=== PATIENT | female | born 1970 | race Caucasian/White ===

== ENCOUNTER → 2018-11-28 | Outpatient (CLI) | payer MEDICAID | END | disposition home or self-care (01) | LOC: RAD 09:59 | DX: M25.511 Pain in right shoulder (principal) ==

== ENCOUNTER → 2018-12-01 | Outpatient (CLI) | payer MEDICAID | END | disposition home or self-care (01) | LOC: MAMMO 00:57 | DX: Z12.31 Encounter for screening mammogram for malignant neoplasm of breast (principal) ==

== ENCOUNTER 2019-02-15 19:05 | Emergency (ER) | payer OTHER ==
[~2019-02-15] VITALS: Ht 167.6 cm; Wt 1084.1 kg
[~2019-02-15 19:05] MED LIST: PREGABALIN150 MG PO
[2019-02-15 19:47] LABS: BASO % 0.3 % (0.0-1.0); EOS # 0.2 10*3/uL (0.0-0.4); EOS % 4.1 % (1.0-4.0); HEMATOCRIT 37.9 % (37.0-47.0); HEMOGLOBIN 12.9 g/dl (12.0-16.0); LYMPH # 1.5 10*3/uL (1.3-4.4); LYMPH % 25.1 % (27.0-41.0); MEAN CELL VOLUME 90.7 fl (81.0-99.0); MEAN CORPUSCULAR HGB 30.9 pg (27.0-31.0); MEAN PLATELET VOLUME 9.8 fl (9.6-12.3); MONO # 0.6 10*3/uL (0.1-1.0); MONO % 10.9 % (3.0-9.0); NEUT # 3.5 10*3/uL (2.3-7.9); NEUT % 59.4 % (47.0-73.0); PLATELET COUNT AUTOMATED 237 10*3/uL (130-400); RED BLOOD COUNT 4.18 10*6/uL (4.10-5.10); RED CELL DISTRI WIDTH 13.4 % (0-14.5); WHITE BLOOD COUNT 5.9 10*3/uL (4.8-10.8)
[2019-02-15 20:01] LABS: ALBUMIN 3.2 gm/dl (3.1-4.5); ALKALINE PHOSPHATASE 79 U/L (45-117); BUN 14 mg/dl (7-24); CHLORIDE 107 mmol/L (98-107); CREATININE 1.02 mg/dL (0.55-1.02); LIPASE 222 U/L (73-393); POTASSIUM 3.7 mmol/L (3.5-5.1); SGOT/AST 22 IU/L (3-35); SGPT/ALT 33 U/L (12-78); SODIUM 139 mmol/L (136-145); TOTAL PROTEIN 6.5 gm/dL (6.4-8.2)
[2019-02-15 20:10] LABS: BILIRUBIN NEGATIVE (NEGATIVE); BLOOD NEGATIVE (NEGATIVE); CLARITY CLEAR (CLEAR); COLOR YELLOW (YELLOW); GLUCOSE NEGATIVE (NEGATIVE); KETONE NEGATIVE (NEGATIVE); LEUKO ESTERASE NEGATIVE (NEGATIVE); NITRITE NEGATIVE (NEGATIVE); SPECIFIC GRAVITY <= 1.005 (1.005-1.030); UROBILINOGEN 0.2 E.U./dl (0.2-1.0)
[2019-02-15 20:31] LABS: EPITHELIAL CELLS 0-2
== END 2019-02-15 21:05 | disposition home or self-care (01) ==
LOC: ED 19:05
PROVIDERS: Emergency Medicine
DX: R10.31 Right lower quadrant pain (principal); R11.0 Nausea; R51 Headache; M79.7 Fibromyalgia; G89.29 Other chronic pain; E03.9 Hypothyroidism, unspecified; Z88.0 Allergy status to penicillin; Z88.2 Allergy status to sulfonamides; Z79.899 Other long term (current) drug therapy

== ENCOUNTER 2019-06-11 22:49 | Inpatient (IN) | payer OTHER ==
[~2019-06-11] VITALS: Ht 167.6 cm; Wt 108.7 kg
[2019-06-11 23:01] VITALS: BP 114/102
[2019-06-11 23:54] LABS: BASO % 0.7 % (0.0-1.0); EOS # 0.1 10*3/uL (0.0-0.4); EOS % 1.7 % (1.0-4.0); HEMATOCRIT 38.6 % (37.0-47.0); HEMOGLOBIN 12.8 g/dl (12.0-16.0); LYMPH % 17.1 % (27.0-41.0); MEAN CELL VOLUME 88.1 fl (81.0-99.0); MEAN CORPUSCULAR HGB 29.2 pg (27.0-31.0); MEAN CORPUSCULAR HGB CONC 33.2 g/dl (33.0-37.0); MONO # 0.8 10*3/uL (0.1-1.0); MONO % 13.3 % (3.0-9.0); PLATELET COUNT AUTOMATED 233 10*3/uL (130-400); RED BLOOD COUNT 4.38 10*6/uL (4.10-5.10); RED CELL DISTRI WIDTH 13.1 % (0-14.5)
[2019-06-12 00:13] LABS: ALBUMIN 3.2 gm/dl (3.1-4.5); ALKALINE PHOSPHATASE 160 U/L (45-117); BUN 14 mg/dl (7-24); CHLORIDE 105 mmol/L (98-107); CREATININE 1.22 mg/dL (0.55-1.02); POTASSIUM 4.2 mmol/L (3.5-5.1); SGOT/AST 286 IU/L (3-35); SGPT/ALT 179 U/L (12-78); SODIUM 137 mmol/L (136-145); TOTAL PROTEIN 6.9 gm/dL (6.4-8.2)
[2019-06-12 00:14] LABS: ACT PARTIAL THROMBO TIME 25.1 SECONDS (20.0-32.1); INTERNATIONAL NORM RATIO 0.9 (2.0-3.5)
[2019-06-12 00:24] LABS: TROPONIN I < 0.015 ng/ml (<0.045)
[2019-06-12] MEDS ORDERED: CIPRO500 MG PO (00:56)
[2019-06-12] MEDS ORDERED: Synthroid,Levo25 MCG PO (02:05)
[2019-06-12] MEDS ORDERED: TRAZODONE150 MG PO (02:06)
[2019-06-12] MEDS ORDERED: DULOXETINE HCL60 MG PO (02:07)
[2019-06-12] MEDS ORDERED: MELOXICAM7.5 MG PO (02:07)
[2019-06-12 02:30] VITALS: BP 118/72
--- NOTE | 2019-06-12 02:30 | NUR ---
A 49, admitted to , under the services of PRUDENCIO Mendoza DO with a diagnosis of TRANSAMINITIS, ELEVATED D-DIMER, CHEST PAIN. Chief complaint is CHEST PAIN. Patient arrived via bed from ER. Monitor applied. Initial assessment completed. Vital signs taken and recorded. PRUDENCIO MENDOZA DO notified of admission to the unit. Orders received. See assessment for past medical history, medications and allergies. Patient and/or family oriented to unit. [facility] visitation policy reviewed. Clothing/patient valuable form completed. SON RICHARDSON
[2019-06-12 02:53] VITALS: BP 122/94
[2019-06-12] MEDS ORDERED: NATURE'S BLEND F1 MG PO (03:01)
[2019-06-12] MEDS ORDERED: VITAMIN B-125000 MC2 PO (03:01)
[2019-06-12] MEDS ORDERED: VITAMIN C500 M4 PO (03:02)
[2019-06-12] MEDS ORDERED: WOMEN'S 50 PLU1 EACH PO (03:02)
[2019-06-12 05:41] LABS: ALKALINE PHOSPHATASE 167 U/L (45-117); BUN 13 mg/dl (7-24); CHLORIDE 107 mmol/L (98-107); CREATININE 1.08 mg/dL (0.55-1.02); PHOSPHOROUS 3.8 mg/dL (2.5-4.9); POTASSIUM 4.1 mmol/L (3.5-5.1); SGOT/AST 426 IU/L (3-35); SGPT/ALT 300 U/L (12-78); SODIUM 139 mmol/L (136-145); TOTAL PROTEIN 6.7 gm/dL (6.4-8.2)
--- NOTE | 2019-06-12 05:45 | NUR ---
PATIENT STATES THAT HER PAIN IS "OUT OF CONTROL". OFFERED NORCO, PATIENT STATES THAT SHE IS ALLERGIC TO VICODIN AND IS UNABLE TO TAKE THAT SO SHE WILL WAIT UNTIL 0730 WHEN SHE IS ABLE TO GET PRN MORPHINE AGAIN.
[2019-06-12 06:13] LABS: BASO # 0.1 10*3/uL (0.0-0.1); BASO % 0.9 % (0.0-1.0); EOS # 0.2 10*3/uL (0.0-0.4); EOS % 2.6 % (1.0-4.0); HEMATOCRIT 38.5 % (37.0-47.0); HEMOGLOBIN 12.6 g/dl (12.0-16.0); LYMPH # 1.7 10*3/uL (1.3-4.4); LYMPH % 29.5 % (27.0-41.0); MEAN CELL VOLUME 90.8 fl (81.0-99.0); MEAN CORPUSCULAR HGB 29.7 pg (27.0-31.0); MEAN CORPUSCULAR HGB CONC 32.7 g/dl (33.0-37.0); MEAN PLATELET VOLUME 10.7 fl (9.6-12.3); MONO # 0.7 10*3/uL (0.1-1.0); MONO % 12.2 % (3.0-9.0); NEUT # 3.1 10*3/uL (2.3-7.9); NEUT % 54.5 % (47.0-73.0); PLATELET COUNT AUTOMATED 210 10*3/uL (130-400); RED BLOOD COUNT 4.24 10*6/uL (4.10-5.10); RED CELL DISTRI WIDTH 13.2 % (0-14.5); WHITE BLOOD COUNT 5.7 10*3/uL (4.8-10.8)
--- NOTE | 2019-06-12 07:53 | NUR ---
PRN IV MORPHINE GIVEN PER PT REQUEST FOR 9/10 PAIN TO MIDSTERNAL CHEST.
--- NOTE | 2019-06-12 08:00 | NUR ---
PT RESTING IN BED. STATING SHE STILL HAS CENTER CHEST PAIN 5/10 THAT RADIATES "EVERYWHERE". RESPS EASY AND NON LABORED. VSS. WHITE BOARD UPDATED. CALL LIGHT WITHIN REACH.
[2019-06-12 08:15] VITALS: BP 122/78
--- NOTE | 2019-06-12 09:00 | NUR ---
Student Teaching Coordinator in to talk to patient. Patient states lives at home with friend. There are no steps in the home. Physician: jair chiang [facility]acy: [facility] Home health services: none Patient's level of ADLs: MINIMAL ASSIST Patient has working utilities: all working DME: walker,cane, cpap Follow-up physician's appointment after d/c: will be made by hospitalist nurse director upon discharge Does patient want to access PORTAL?: no Discharge plan discussed with patient, she states she lives at home with friend, she uses a cane or walker for ambulation due to fibromyalgia and is independent in adls, she also has a cpap, discussed with her a discharge plan including VNA and educated her on the services they offer, patient stated she currently has home physical therapy but does not remember the name of the company, she states she will have her friend bring in the card with the company name on it, she does not feel at this time that she needs any visiting nurses, case management will follow. CY DOMINGO
--- NOTE | 2019-06-12 09:50 | NUR ---
DR ERICKSON NOTIFIED OF CRITICAL APPT: NO CLOT DETECTED. WILL INITIATE HEPARIN PROTOCOL AT THIS TIME.
--- NOTE | 2019-06-12 10:16 | NUR ---
DR BAILEY NOTIFIFED OF NEW CONSULT. NO NEW ORDERS AT THIS TIME
--- NOTE | 2019-06-12 10:27 | NUR ---
SPOKE WITH RADIOLOGY CONCERNING ULTRASOUND. PT ATE BREAKFAST THIS MORNING AND WANTS TO DO ULTRASOUND IN THE AM. INFORMED PT THAT SHE WILL BE NPO AFTER MIDNIGHT
--- NOTE | 2019-06-12 10:55 | NUR ---
DR NAVARRO IN TO SEE PT.STATES PT IS TO HAVE US OF GALLBLADDER TODAY AND THAT IS SHE IS NPO FOR 4 HOURS PRIOR THAT IS FINE. ALSO TO CHANGE MORPHINE TO 4MG Q4H IV AND TO MAKE PT CLEAR LIQUID DIET AFTER US.
--- NOTE | 2019-06-12 11:14 | NUR ---
PT C/O 01/12 RADIATING CHEST/ABD PAIN. MEDICATED PER ORDER. WILL MONITOR FOR RELIEF. VOICES NO OTHER CONCERNS AT THIS TIME. RESPS EASY AND NON LABORED. NO S/S OF DISTRESS NOTED. VSS. CALL LIGHT WITHIN REACH
--- NOTE | 2019-06-12 11:23 | NUR ---
HEPARIN RESTARTED PER PROTOCOL. INFUSING AT 15U/KG/HR-16.4ML/H WITHOUT ISSUE.
--- NOTE | 2019-06-12 11:55 | NUR ---
MORPHINE EFFECTIVE PER PT
[2019-06-12 12:00] VITALS: BP 119/76
--- NOTE | 2019-06-12 12:37 | NUR ---
HEPARIN ON HOLD FOR ONE HOUR D/T PTT. WILL FOLLOW HEPARIN PROTOCOL.
--- NOTE | 2019-06-12 15:02 | NUR ---
PT TAKEN OFF FLOOR FOR V/Q SCAN AND ULTRASOUND
--- NOTE | 2019-06-12 15:02 | NUR ---
Shift chart check completed.
[2019-06-12 16:00] VITALS: BP 131/83
--- NOTE | 2019-06-12 16:16 | NUR ---
PT C/O 12/13 ACHING/STABBING CHEST/ABD PAIN. MEDICATED PER ORDER. WILL MONITOR FOR RELIEF. RESPS EASY AND NON LABORED. NO S/S OF DISTRESS NOTED. VSS. CALL LIGHT WITHIN REACH.
--- NOTE | 2019-06-12 18:12 | NUR ---
MORPHINE EFFECTIVE PER PT
--- NOTE | 2019-06-12 18:21 | NUR ---
PT C/O 07/13 CENTER CHEST/ABD PAIN. MEDICATED PER ORDER. WILL MONITOR FOR RELIEF. RESPS EASY AND NON LABORED. VSS. CALL LIGHT WITHIN REACH
[2019-06-12 20:00] VITALS: BP 112/51
--- NOTE | 2019-06-12 20:01 | NUR ---
CALLED DR YOUNG AND NOTIFIED HIM OF PATIENT WANTING HER TRAZADONE AND HE IS GOING TO LOOK AT HER MEDS.
--- NOTE | 2019-06-12 20:22 | NUR ---
2021 MORPHINE GIVEN PER ORDER FOR PAIN MID STERNAL TO BACK PER PT. RATED "8"
--- NOTE | 2019-06-12 21:22 | NUR ---
PER PT. MORPHINE EFFECTIVE FOR PAIN. SEE MAR.
--- NOTE | 2019-06-12 23:54 | NUR ---
24 HR chart check completed.
[2019-06-13] VITALS (7 sets, daily range): BP systolic 88–106; BP diastolic 42–70
--- NOTE | 2019-06-13 05:08 | NUR ---
MORPHINE GIVEN PER ORDER FOR MID STERNAL CHEST PAIN RATED"7-8" SEE MAR.
--- NOTE | 2019-06-13 06:08 | NUR ---
PER PT. MORPHINE EFFECTIVE AT MAKING PAIN MANAGABLE.
[2019-06-13 06:37] LABS: BASO # 0.1 10*3/uL (0.0-0.1); BASO % 1.1 % (0.0-1.0); EOS # 0.3 10*3/uL (0.0-0.4); EOS % 5.9 % (1.0-4.0); HEMATOCRIT 36.4 % (37.0-47.0); HEMOGLOBIN 11.8 g/dl (12.0-16.0); LYMPH # 1.3 10*3/uL (1.3-4.4); LYMPH % 28.9 % (27.0-41.0); MEAN CELL VOLUME 92.9 fl (81.0-99.0); MEAN CORPUSCULAR HGB 30.1 pg (27.0-31.0); MEAN CORPUSCULAR HGB CONC 32.4 g/dl (33.0-37.0); MEAN PLATELET VOLUME 10.5 fl (9.6-12.3); MONO # 0.7 10*3/uL (0.1-1.0); NEUT # 2.1 10*3/uL (2.3-7.9); NEUT % 48.6 % (47.0-73.0); PLATELET COUNT AUTOMATED 187 10*3/uL (130-400); RED BLOOD COUNT 3.92 10*6/uL (4.10-5.10); RED CELL DISTRI WIDTH 13.5 % (0-14.5); WHITE BLOOD COUNT 4.4 10*3/uL (4.8-10.8)
[2019-06-13 07:07] LABS: ALBUMIN 2.9 gm/dl (3.1-4.5); BUN 8 mg/dl (7-24); CHLORIDE 106 mmol/L (98-107); POTASSIUM 3.8 mmol/L (3.5-5.1); SODIUM 139 mmol/L (136-145)
[2019-06-13 07:12] LABS: ALKALINE PHOSPHATASE 204 U/L (45-117); CREATININE 1.13 mg/dL (0.55-1.02); SGOT/AST 266 IU/L (3-35); SGPT/ALT 366 U/L (12-78); TOTAL PROTEIN 6.4 gm/dL (6.4-8.2)
--- NOTE | 2019-06-13 09:00 | NUR ---
case management visits with patient, she states she will return home when medically stable and denies any home needs, case management will follow
--- NOTE | 2019-06-13 09:13 | NUR ---
MORPHINE GIVEN FOR C/O CHEST PAIN, RATES 6/10 ON PAIN SCALE. WILL MONITOR.
--- NOTE | 2019-06-13 10:15 | NUR ---
MORPHINE EFFECTIVE PER PT.
--- NOTE | 2019-06-13 12:14 | NUR ---
DR. AGUILAR NOTIFIED OF CONSULT.
--- NOTE | 2019-06-13 15:36 | NUR ---
NORCO GIVEN FOR C/O CHEST APIN. RATES 5/10 ON PAIN SCALE. WILL MONITOR.
--- NOTE | 2019-06-13 16:40 | NUR ---
LILIAN EFFECTIVE PER PT.
--- NOTE | 2019-06-13 18:04 | NUR ---
MORPHINE GIVEN FOR C/O CHEST PAIN, RATES 8/10 ON PAIN SCALE. WILL MONITOR.
--- NOTE | 2019-06-13 19:56 | NUR ---
NORCO GIVEN PER ORDER FOR MID STERNAL TO BACK PAIN RATED "6-7" SEE MAR. IV SITE IN RIGHT ANTECUBITAL INFILTRATED. FLUIDS STOPPED AND HEPLOCK REMOVED. STERILE BAND AID APPLIED. IV started left forearm with #22 angiocath after 1ST attempts. The IV site was prepped with Chloraprep. Heparin lock attached. IV solution 0.9NS infusing at 100 cc/hr. Sterile dressing applied. Patient tolerated precedure well. Procedure performed according to [facility] policy & procedure. POLO MEEKS
--- NOTE | 2019-06-13 20:59 | NUR ---
NORCO EFFECTIVE FOR MID STERNAL CHEST PAIN PER PT. "IT HELPS MAKE THE PAIN TOLERABLE".
--- NOTE | 2019-06-13 23:54 | NUR ---
PT. DENIES NEED FOR PAIN MEDICATION AT THIS TIME.
[2019-06-14] VITALS (10 sets, daily range): BP systolic 94–133; BP diastolic 54–83
--- NOTE | 2019-06-14 00:55 | NUR ---
SLEEPING. NOT AWAKEND. NO ACUTE DISTRESS.
--- NOTE | 2019-06-14 01:08 | NUR ---
24 HR chart check completed.
--- NOTE | 2019-06-14 03:39 | NUR ---
PATIENT AWAKE AND UP TO BATHROOM FEELING NAUSEATED. SKIN NOTED TO BE SLIGHT JAUNDICE. SCLERA STILL WHITE. ZOFRAN TO BE GIVEN.
--- NOTE | 2019-06-14 03:51 | NUR ---
MORPHINE GIVEN PER ORDER FOR PAIN RATED "10" MID STERNAL/EPIGASTRIC COMES AND GOES.
--- NOTE | 2019-06-14 04:50 | NUR ---
ZOFRAN EFFECTIVE FOR NAUSEA. MORPHINE EFFECTIVE FOR MIDSTERNAL/EPIGASTRIC PAIN PER PT. PAIN IS ABOUT 2-3.
[2019-06-14 06:21] LABS: BASO # 0.1 10*3/uL (0.0-0.1); BASO % 1.4 % (0.0-1.0); EOS # 0.3 10*3/uL (0.0-0.4); EOS % 7.7 % (1.0-4.0); HEMATOCRIT 35.7 % (37.0-47.0); HEMOGLOBIN 11.7 g/dl (12.0-16.0); LYMPH # 1.4 10*3/uL (1.3-4.4); LYMPH % 37.4 % (27.0-41.0); MEAN CELL VOLUME 92.2 fl (81.0-99.0); MEAN CORPUSCULAR HGB 30.2 pg (27.0-31.0); MEAN CORPUSCULAR HGB CONC 32.8 g/dl (33.0-37.0); MEAN PLATELET VOLUME 10.7 fl (9.6-12.3); MONO # 0.4 10*3/uL (0.1-1.0); MONO % 12.1 % (3.0-9.0); NEUT # 1.5 10*3/uL (2.3-7.9); NEUT % 41.1 % (47.0-73.0); PLATELET COUNT AUTOMATED 198 10*3/uL (130-400); RED BLOOD COUNT 3.87 10*6/uL (4.10-5.10); RED CELL DISTRI WIDTH 13.7 % (0-14.5); WHITE BLOOD COUNT 3.6 10*3/uL (4.8-10.8)
[2019-06-14 06:34] LABS: BUN 7 mg/dl (7-24); CHLORIDE 111 mmol/L (98-107); CREATININE 0.99 mg/dL (0.55-1.02); POTASSIUM 3.7 mmol/L (3.5-5.1); SGOT/AST 137 IU/L (3-35); SGPT/ALT 288 U/L (12-78); SODIUM 142 mmol/L (136-145)
[2019-06-14 06:36] LABS: ALKALINE PHOSPHATASE 176 U/L (45-117); TOTAL PROTEIN 6.3 gm/dL (6.4-8.2)
--- NOTE | 2019-06-14 09:00 | NUR ---
case management visits with patient, she was ambulating in room per self, she states she will return home when medically stable and denies any home needs
--- NOTE | 2019-06-14 13:23 | NUR ---
PT OFF FLOOR TO SURGERY FOR ERCP.
--- NOTE | 2019-06-14 19:25 | NUR ---
PATIENT BACK FROM SURGERY AT THIS TIME. DISORIENTED AND C/O PAIN, PER SURGERY THEY STATE THAT PATIENT HAD PAIN MEDICATION PRIOR TO LEAVING THEIR DEPARTMENT
--- NOTE | 2019-06-14 19:30 | NUR ---
CALLED ANGEL (PATIENTS SISTER) AND ANA (PATIENTS FRIEND) PER REQUEST TO LET THEM KNOW THAT SHE IS BACK FROM SURGERY.
--- NOTE | 2019-06-14 19:58 | NUR ---
PATIENT PROVIDED WITH ICE CHIPS PER REQUEST, PATIENT STILL GROGGY FROM ANESTHISIA. BUT ABLE TO VERBALIZE WELL. RN WILL MONITOR
--- NOTE | 2019-06-14 20:11 | NUR ---
PATIENT MEDICATED WITH MORPHINE PER DRS ORDERS. PATIENT CRYING AND YELLING OUT "IM IN PAIN" PATIENT DISORIENTED, FORGOT THIS RN NAME ALTHOUGH I WAS JUST IN PATIENTS ROOM. FAMILY IS IN AT THE BEDSIDE VISITING WITH PATIENT.
--- NOTE | 2019-06-14 21:51 | NUR ---
NORCO GIVEN FOR CONTINUED PAIN. CONTINUES TO SCREAM OUT
--- NOTE | 2019-06-14 23:02 | NUR ---
PATIENT AGAIN MEDICATED WITH MORPHINE, PATIENT YELLING OUT AND SCREAMING LOUDLY. RN WILL MONITOR
[2019-06-15] VITALS: BP 128/79
--- NOTE | 2019-06-15 | NUR ---
PATIENT WAS YELLING AND SCREAM ABOUT PAIN. SINCE LAST MORPHINE ADMINISTRATION PATIENT HAS DECREASED THE SCREAM OUT.
--- NOTE | 2019-06-15 01:02 | NUR ---
PATIENT HAVING OFF AND ON ABD INCISION PAIN AND NAUSEA. ZOFRAN GIVEN FOR NAUSEA AND TYLENOL GIVEN FOR ABD INCISION GAS PAIN TOO SOON FOR ANYOTHER PAIN MEDICATION.
--- NOTE | 2019-06-15 01:34 | NUR ---
NORCO GIVEN PER ORDER FOR ABD INCISION/GAS PAIN RATED "8" IN INTENSITY. TEACHING PATIENT TO DO DEEP BREATHING RELAXATION TECHNIQUE. PT. DID GET UP TO BEDSIDE COMMODE AND VOIDED 600CC JEB URINE.
--- NOTE | 2019-06-15 02:30 | NUR ---
NORCO AND TYLENOL SEEM EFFECTIVE PATIENT SLEEPING.
--- NOTE | 2019-06-15 03:15 | NUR ---
PT AWAKEND AND C/O UPPER ABD INCISION PAIN RATED "8-9" THAT COMES AND GOES. MORPHINE GIVEN PER ORDER FOR PAIN. DEEP BREATHING ENCOURAGED. ICE CHIPS GIVEN AND ENCOURAGED PATIENT TO GET UP AND MOVE.
--- NOTE | 2019-06-15 03:53 | NUR ---
24 HR chart check completed.
--- NOTE | 2019-06-15 04:15 | NUR ---
PT. AWAKEND WHEN CHECKING ON HER. WHIMPERING WITH ABD GAS/INCISIONAL PAIN THAT COMES AND GOES. SAYS THE MORPHINE HELP IT TO BE TOLERABLE. BREATHING BEING DONE TO HELP WITH PAIN.
--- NOTE | 2019-06-15 05:29 | NUR ---
NAYELYCO GIVEN PER ORDER FOR ABD INCISION/GAS PAIN RATED "6-7" PAIN COMES AND GOES. SEE MAR.
--- NOTE | 2019-06-15 06:25 | NUR ---
LILIAN HELPING TAKE THE EDGE OFF BUT STILL IN PAIN PER PT.
[2019-06-15 06:35] LABS: HEMATOCRIT 34.9 % (37.0-47.0); HEMOGLOBIN 11.4 g/dl (12.0-16.0); MEAN CELL VOLUME 91.4 fl (81.0-99.0); MEAN CORPUSCULAR HGB 29.8 pg (27.0-31.0); MEAN CORPUSCULAR HGB CONC 32.7 g/dl (33.0-37.0); MEAN PLATELET VOLUME 10.7 fl (9.6-12.3); PLATELET COUNT AUTOMATED 227 10*3/uL (130-400); RED BLOOD COUNT 3.82 10*6/uL (4.10-5.10); RED CELL DISTRI WIDTH 13.4 % (0-14.5); WHITE BLOOD COUNT 11.2 10*3/uL (4.8-10.8)
[2019-06-15 06:53] LABS: ALBUMIN 2.9 gm/dl (3.1-4.5); ALKALINE PHOSPHATASE 166 U/L (45-117); BUN 8 mg/dl (7-24); CHLORIDE 107 mmol/L (98-107); CREATININE 1.15 mg/dL (0.55-1.02); POTASSIUM 3.9 mmol/L (3.5-5.1); SGOT/AST 90 IU/L (3-35); SGPT/ALT 213 U/L (12-78); SODIUM 138 mmol/L (136-145); TOTAL PROTEIN 6.3 gm/dL (6.4-8.2)
[2019-06-15 07:11] LABS: PLATELET SUFFICIENCY NORMAL (NORMAL); TOTAL CELLS COUNTED 100 #CELLS
--- NOTE | 2019-06-15 07:13 | NUR ---
MORPHINE GIVEN PER ORDER FOR ABD INCISION COMES AND GOES RATED "7-8". SEE MAR.
--- NOTE | 2019-06-15 07:14 | NUR ---
DR. BAILEY IN AND EXAMINED PATIENT AND SPOKE WITH HER. ORDERS RECEIVED.
--- NOTE | 2019-06-15 07:58 | NUR ---
PT DIET CHANGED TO FULL LIQUID DIET PER ORDERS GIVEN BY DR BAILEY. WILL MONITOR HOW PT TOLERATES THIS DIET.
--- NOTE | 2019-06-15 09:00 | NUR ---
case management visits with patient, she states she will return home when medically stable and denies any home needs, case management will follow
--- NOTE | 2019-06-15 09:25 | NUR ---
PT C/O NAUSEA/STOMACH PAIN. ZOFRAN GIVEN AT THIS TIME. IV FLUIDS CONTINUE TO RUN. IV SITE IS PATENT. DRESSING C/D/I. RESPIRATIONS EASY AND UNLABORED ON NC. CALL LIGHT IN REACH.
--- NOTE | 2019-06-15 10:25 | NUR ---
ZOFRAN EFFECTIVE PER PT.
--- NOTE | 2019-06-15 11:47 | NUR ---
PT GIVEN DILAUDID 0.5 MG VIA IV FOR C/O ABDOMINAL PAIN. WILL MONITOR FOR EFFECTIVENESS.
[2019-06-15 12:00] VITALS: BP 102/58
--- NOTE | 2019-06-15 12:37 | NUR ---
PT STATES THAT DILAUDID IS EFFECTIVE.
--- NOTE | 2019-06-15 13:00 | NUR ---
PT UP WALKING T/O HALLS AT THIS TIME WITH .
[2019-06-15 16:00] VITALS: BP 112/64
--- NOTE | 2019-06-15 19:15 | NUR ---
REPORT OBTAINED FROM PRIOR NURSE. PATIENT IS RESTIN IN BED QUIETLY AT THIS TIEM, VOICED NO COMPLAINTS. BED IS LOCKED IN LOWEST POSITION. CALL LIGHT WITHIN REACH
[2019-06-15 20:00] VITALS: BP 112/64
--- NOTE | 2019-06-15 20:36 | NUR ---
PATIENT MEDICATED WITH ZOFRAN AND DILAUDID FOR COMPLAINT FOR NAUSEA AND 7/10 PAIN. WILL CONITNUE TO MONITOR
--- NOTE | 2019-06-15 21:36 | NUR ---
ZOFRAN AND DILAUDID EFFECTIVE
[2019-06-16] VITALS: BP 115/65
--- NOTE | 2019-06-16 01:03 | NUR ---
PATIENT MEDICATED WITH DILAUDID FOR 8/10 PAIN. WILL MONITOR
--- NOTE | 2019-06-16 02:03 | NUR ---
DILAUDID APPEARS EFFECTIVE. PATIENT RESTING QUIETLY IN BED. EYES CLOSED. NO DISTRESS NOTED. CALL LIGHT WITHIN REACH
--- NOTE | 2019-06-16 06:19 | NUR ---
PATIENT MEDICATED WITH DILAUDID FOR C/O 9/10 ABD PAIN. WILL MONITOR
[2019-06-16 08:00] VITALS: BP 100/50
--- NOTE | 2019-06-16 08:30 | NUR ---
PT COMPLAINS OF PAIN AT THIS TIME. REQUESTS DILAUDID.
--- NOTE | 2019-06-16 09:30 | NUR ---
PT MEDICATED FOR PAIN AT THIS TIME. PRN DILAUDID ADMINISTERED. WILL MONITOR FOR EFFECTIVENESS. PT ENCOURAGED TO GET UP AND WALK. PT SITTING ON SIDE OF BED AFTER A SHORT WALK. PT STATES SHE IS NAUSEOUS. BREAKFAST BROUGHT IN AT THIS TIME. PT EATING. BED IN LOWEST LOCKED POSITION AND CALL LIGHT WITHIN REACH.
[2019-06-16 09:46] LABS: BASO % 0.4 % (0.0-1.0); EOS # 0.1 10*3/uL (0.0-0.4); EOS % 0.6 % (1.0-4.0); HEMATOCRIT 32.1 % (37.0-47.0); HEMOGLOBIN 10.4 g/dl (12.0-16.0); LYMPH # 1.6 10*3/uL (1.3-4.4); LYMPH % 15.6 % (27.0-41.0); MEAN CELL VOLUME 91.7 fl (81.0-99.0); MEAN CORPUSCULAR HGB 29.7 pg (27.0-31.0); MEAN CORPUSCULAR HGB CONC 32.4 g/dl (33.0-37.0); MEAN PLATELET VOLUME 10.1 fl (9.6-12.3); MONO # 0.9 10*3/uL (0.1-1.0); MONO % 8.3 % (3.0-9.0); NEUT # 7.6 10*3/uL (2.3-7.9); NEUT % 74.7 % (47.0-73.0); PLATELET COUNT AUTOMATED 205 10*3/uL (130-400); RED CELL DISTRI WIDTH 14.2 % (0-14.5); WHITE BLOOD COUNT 10.2 10*3/uL (4.8-10.8)
[2019-06-16 10:00] LABS: ALBUMIN 2.8 gm/dl (3.1-4.5); ALKALINE PHOSPHATASE 126 U/L (45-117); BUN 9 mg/dl (7-24); CHLORIDE 110 mmol/L (98-107); CREATININE 1.02 mg/dL (0.55-1.02); POTASSIUM 3.8 mmol/L (3.5-5.1); SGOT/AST 47 IU/L (3-35); SGPT/ALT 141 U/L (12-78); SODIUM 140 mmol/L (136-145); TOTAL PROTEIN 5.9 gm/dL (6.4-8.2)
--- NOTE | 2019-06-16 10:30 | NUR ---
DILAUDID EFFECTIVE PER PT.
[2019-06-16 12:00] VITALS: BP 112/50
--- NOTE | 2019-06-16 12:00 | NUR ---
PT'S IV WAS FOUND TO BE INFILTRATED. PT STATES SHE NEEDS A NEW ONE FOR HER PAIN MEDICATIONS. STUDENT NURSES DISCONTINUED IV. WARM COMPRESS APPLIED. WILL CONTINUE TO MONITOR.
[2019-06-16 16:00] VITALS: BP 99/48
--- NOTE | 2019-06-16 16:30 | NUR ---
PT WALKING IN HALLWAYS. STEADY GAIT ASSESSED.
--- NOTE | 2019-06-16 17:44 | NUR ---
PT STATES SHE IS HAVING PAIN. IV TYLENOL ADMINISTERED PER ORDERS. NO S/S OF DISTRESS, RESPIRATIONS ARE EASY AND REGULAR. NO SOB NOTED. PT PLAYING ON COMPUTER. BED IN LOWEST LOCKED POSITION CALL LIGHT WITHIN REACH
[2019-06-16 20:00] VITALS: BP 123/70
--- NOTE | 2019-06-16 21:14 | NUR ---
PATIENT MEDICATED WITH NORCO FOR C/O ABD PAIN 09/12. WILL MONITOR
--- NOTE | 2019-06-16 21:17 | NUR ---
PATIENT MEDICATED WITH DULCOLAX FOR C/O CONSTIPATION. WILL MONITOR
--- NOTE | 2019-06-16 22:14 | NUR ---
NORCO APPEARS EFFECTIVE. PATIENT RESTING QUIETLY IN BED, EYES CLSOED. NO DISTRESS NOTED, CALL LIGHT WITHIN REACH
[2019-06-17] VITALS: BP 118/60
--- NOTE | 2019-06-17 03:05 | NUR ---
PATIENT MEDICATED WITH NORCO FOR C/O ABDOMEN PAIN 10/12. WILL MONITOR
--- NOTE | 2019-06-17 04:05 | NUR ---
NORCO APPEARS EFFECTIVE, PATIENT RESTING QUIETLY IN BED, NO DISTRESS NOTED. CALL LIGHT WITHIN REACH
[2019-06-17 07:06] LABS: BASO % 0.3 % (0.0-1.0); EOS # 0.2 10*3/uL (0.0-0.4); EOS % 1.5 % (1.0-4.0); HEMATOCRIT 30.4 % (37.0-47.0); HEMOGLOBIN 10.1 g/dl (12.0-16.0); LYMPH # 1.5 10*3/uL (1.3-4.4); LYMPH % 12.6 % (27.0-41.0); MEAN CELL VOLUME 91.8 fl (81.0-99.0); MEAN CORPUSCULAR HGB 30.5 pg (27.0-31.0); MEAN CORPUSCULAR HGB CONC 33.2 g/dl (33.0-37.0); MEAN PLATELET VOLUME 10.5 fl (9.6-12.3); MONO % 8.9 % (3.0-9.0); NEUT # 8.9 10*3/uL (2.3-7.9); NEUT % 76.3 % (47.0-73.0); PLATELET COUNT AUTOMATED 211 10*3/uL (130-400); RED BLOOD COUNT 3.31 10*6/uL (4.10-5.10); RED CELL DISTRI WIDTH 14.4 % (0-14.5); WHITE BLOOD COUNT 11.7 10*3/uL (4.8-10.8)
[2019-06-17 07:46] LABS: ALBUMIN 2.4 gm/dl (3.1-4.5); ALKALINE PHOSPHATASE 105 U/L (45-117); BUN 6 mg/dl (7-24); CHLORIDE 107 mmol/L (98-107); POTASSIUM 3.5 mmol/L (3.5-5.1); SGOT/AST 32 IU/L (3-35); SGPT/ALT 103 U/L (12-78); SODIUM 140 mmol/L (136-145); TOTAL PROTEIN 5.6 gm/dL (6.4-8.2)
[2019-06-17 08:00] VITALS: BP 105/64
[2019-06-17] MEDS ORDERED: HYDROCODONE-AC1 EAC1 PO (09:31)
--- NOTE | 2019-06-17 11:21 | NUR ---
Discharge instructions reviewed with patient. Patient receptive and verbalizes understanding. Follow-up care understood. Written instructions given to patient. norco rx given to paient. pt has no questions on discharge instructions. MAMTA MEYER
--- NOTE | 2019-06-20 15:17 | NUR ---
[facility] called stating this patient was under their services and asked for clinicals to be faxed to [phone]. Faxed clinicals.
== END 2019-06-17 11:21 | disposition home or self-care (01) | DRG 263 ==
LOC: ED 22:49 → 4E 06-12 01:29 → EDHOLD 06-12 01:29 → 4E 06-12 01:50
PROVIDERS: Emergency Medicine; Internal Medicine; Surgery; ADMIT Emergency Medicine
PROC: 5A09357 Assistance with Respiratory Ventilation, Less than 24 Consecutive Hours, Continuous Positive Airway Pressure (ICD-10-PCS; 2019-06-13)
PROC: 0FT44ZZ Resection of Gallbladder, Percutaneous Endoscopic Approach (ICD-10-PCS; principal; 2019-06-14)
PROC: 0F798DZ Dilation of Common Bile Duct with Intraluminal Device, Via Natural or Artificial Opening Endoscopic (ICD-10-PCS; 2019-06-14)
PROC: BF141ZZ Fluoroscopy of Gallbladder, Bile Ducts and Pancreatic Ducts using Low Osmolar Contrast (ICD-10-PCS; 2019-06-14)
PROC: 0FC98ZZ Extirpation of Matter from Common Bile Duct, Via Natural or Artificial Opening Endoscopic (ICD-10-PCS; 2019-06-14)
DX: K80.00 Calculus of gallbladder with acute cholecystitis without obstruction (principal); N17.0 Acute kidney failure with tubular necrosis; R07.1 Chest pain on breathing; M79.7 Fibromyalgia; E03.9 Hypothyroidism, unspecified; E53.8 Deficiency of other specified B group vitamins; G62.9 Polyneuropathy, unspecified; G47.33 Obstructive sleep apnea (adult) (pediatric); Z88.0 Allergy status to penicillin; Z88.2 Allergy status to sulfonamides; Z82.49 Family history of ischemic heart disease and other diseases of the circulatory system; Z83.3 Family history of diabetes mellitus; Z82.0 Family history of epilepsy and other diseases of the nervous system; Z83.49 Family history of other endocrine, nutritional and metabolic diseases; Z79.899 Other long term (current) drug therapy; Z90.710 Acquired absence of both cervix and uterus; R74.0 Nonspecific elevation of levels of transaminase and lactic acid dehydrogenase [LDH]